=== PATIENT | female | born 1975 | race Two or more races ===

== ENCOUNTER → 2023-06-30 06:36 | Day surgery (SDC) | payer BC, SELFPAY ==
[2023-06-30 12:15] LABS: Glucose - Point of Care 121 mg/dl (70-99)
== END ==
LOC: GI 06:36
PROVIDERS: ATTENDING PHYSICIAN Internal Medicine
DX: Z12.11 Encounter for screening for malignant neoplasm of colon (principal)
CPT/HCPCS: G0121; 82962